=== PATIENT | male | born 1985 | race African-American/Black ===

== ENCOUNTER 2016-12-24 18:35 | Emergency (ER) | payer OTHER ==
[~2016-12-24] VITALS: Ht 175.3 cm; Wt 68.0 kg
[2016-12-24] MEDS ORDERED: LIDOCAINE HCL BUFFERED 1% 20 ML VIAL INJ ONE (20:00)
[2016-12-24] MEDS ORDERED: PERTUSS(ACELL),DIPH,TET VAC/PF 0.5 ML VIAL IM ONE (20:45)
[2016-12-24] MEDS ORDERED: BACITRACIN 0.9 GM PACKET OINTMENT TP ONE (20:45)
[2016-12-25 00:30] VITALS: BP 124/78
== END 2016-12-25 00:53 | disposition home or self-care (01) ==
LOC: EMS 18:37
DX: S01.81XA Laceration without foreign body of other part of head, initial encounter (principal); S50.311A Abrasion of right elbow, initial encounter; V19.9XXA Pedal cyclist (driver) (passenger) injured in unspecified traffic accident, initial encounter; Y93.89 Activity, other specified; Y92.89 Other specified places as the place of occurrence of the external cause; Y99.8 Other external cause status
CPT/HCPCS: 12013; 70450; 72125; 73030; 73070; 73100; 90471; 90715; 99284; J3490

== ENCOUNTER 2016-12-30 10:00 | Emergency (ER) | payer OTHER ==
[~2016-12-30] VITALS: Ht 175.3 cm; Wt 63.5 kg
[2016-12-30 10:58] VITALS: BP 123/88
== END 2016-12-30 12:08 | disposition home or self-care (01) ==
LOC: EMS 10:04
DX: S01.81XD Laceration without foreign body of other part of head, subsequent encounter (principal); V19.9XXD Pedal cyclist (driver) (passenger) injured in unspecified traffic accident, subsequent encounter; Y92.89 Other specified places as the place of occurrence of the external cause; Y99.8 Other external cause status
CPT/HCPCS: 99282